=== PATIENT | female | born 1935 | race Caucasian/White ===

== ENCOUNTER → 2022-05-12 | Outpatient (CLI) | payer OTHER | END | disposition home or self-care (01) | LOC: MRI 07:32 | PROVIDERS: ATTEND Neurological Surgery | DX: M54.2 Cervicalgia (principal); M48.02 Spinal stenosis, cervical region; M96.1 Postlaminectomy syndrome, not elsewhere classified; M54.59 Other low back pain; K52.89 Other specified noninfective gastroenteritis and colitis | CPT/HCPCS: 72141 ==

== ENCOUNTER 2022-10-04 10:18 | Outpatient (CLI) | payer OTHER | END 2022-10-04 10:22 | disposition home or self-care (01) | LOC: NUCLEAR 10:18 | PROVIDERS: ATTEND Psychiatry & Neurology Neurology | DX: G30.8 Other Alzheimer's disease (principal) | CPT/HCPCS: 78803; A9557 ==